=== PATIENT | female | born 1990 ===

== ENCOUNTER 2017-10-01 10:46 | Emergency (ER) | payer OTHER, SELFPAY ==
[2017-10-01 10:54] VITALS: BP 140/88; PULSE 78; RESP 13; TEMP 36.8; O2SAT 99
--- NOTE | 2017-10-01 11:19 | ED_ITS ---
HPI - Nausea/Vomiting/Diarrhea General Chief complaint: Nausea/Vomiting/Diarrhea Stated complaint: 11 WKS PREG, THROWING UP ALOT Time Seen by Provider: 10/01/17 10:53 Source: patient Mode of arrival: ambulatory Limitations: no limitations History of Present Illness HPI Narrative: 27-year-old at approximately 11 weeks EGA here for evaluation of nausea and vomiting. Patient states she has had nausea and vomiting since about 8 weeks gestation. She does have Zofran that she has been given by her OB. She has a OB appointment tomorrow. She states she is having some cramping however no also fluid no vaginal bleeding. Came in because of the nausea. Related Data Home Medications Medication Instructions Recorded Confirmed acetaminophen [Tylenol] 1 dose PO PRN PRN 10/01/17 10/01/17 ondansetron HCl 1 tab PO TID PRN 10/01/17 10/01/17 [id number] fum-folic 1 tab PO DAILY 10/01/17 10/01/17 Previous Rx's Medication Instructions Recorded ondansetron [Zofran ODT] 4 mg PO Q6-8H PRN #10 tab 10/01/17 Allergies Allergy/AdvReac Type Severity Reaction Status Date / Time No Known Drug Allergies Allergy Verified 10/01/17 11:21 Review of Systems Constitutional Denies chills, Denies fatigue and Denies fever(s) ENT Ears, Nose, Mouth, and Throat: Denies vertigo and Denies dizziness Cardiovascular Denies chest pain, Denies palpitations and Denies dyspnea Respiratory Denies dyspnea Gastrointestinal Gastrointestinal: Reports abdominal pain (Cramping), Denies diarrhea, Reports nausea and Denies vomiting Genitourinary Denies urinary frequency, Denies dysuria, Denies flank pain and Denies vaginal discharge Musculoskeletal Denies myalgias and Denies arthralgias Integumentary/Breasts Denies rash Neurologic Denies vertigo and Denies dizziness Endocrine Denies fatigue and Denies palpitations Exam Initial Vital Signs Initial Vital Signs: Vital Signs Temperature 98.3 F 10/01/17 10:54 Pulse Rate 78 10/01/17 10:54 Respiratory Rate 13 10/01/17 10:54 Blood Pressure 140/88 H 10/01/17 10:54 Pulse Oximetry 99 10/01/17 10:54 Const General: cooperative, healthy appearing, comfortable, well developed, well groomed and No acute distress [facility] [place] Head: normal to inspection, normocephalic and atraumatic Resp Effort & Inspection: normal respiratory effort Cardio Rate: regular rate Pulses: radial pulses present GI Inspection: non-distended Palpation: soft Skin Lesions: no lesions Rashes: no rashes Neuro General: alert, awake and oriented x3 Gait: normal gait Extrem General: normal to inspection and capillary refill normal Course Orders Ordered: ED Orders 10/01/17 11:05 Ictotest Urine Stat Urine Microscopic Stat 10/01/17 13:00 Urine Culture Stat Discontinued Medications Sodium Chloride (Normal Saline 0.9%) 1,000 mls @ 1,000 mls/hr IV BOLUS ONE Stop: 10/01/17 11:52 Last Infusion: 10/01/17 12:45 Dose: 0 mls/hr Admin: 10/01/17 11:20 Dose: 1,000 mls/hr Ondansetron HCl (Zofran) 4 mg IV NOW ONE Stop: 10/01/17 10:54 Last Admin: 10/01/17 11:20 Dose: 4 mg Promethazine HCl (Phenadoz) 25 mg PO NOW ONE Stop: 10/01/17 13:40 Last Admin: 10/01/17 14:50 Dose: 25 mg Vital Signs - 8 hr 10/01/17 10:54 10/01/17 13:59 Temperature 98.3 F Pulse Rate 78 64 Respiratory Rate 13 15 Blood Pressure 140/88 H Blood Pressure [Left Arm] 111/64 Pulse Oximetry 99 100 MDM - Nausea/Vomiting/Diarrhea Lab Data Attestation: I reviewed the patient's lab results. Lab Results 10/01/17 10/01/17 Range/Units 11:05 11:05 Urine Ictotest Negative (Negative) Urine RBC 0-1/hpf (0-5/HPF) Urine WBC 1-5/hpf (0-5/HPF) Ur Squamous Epith Cells 5-10 /hpf H Amorphous Sediment 1+ Urine Bacteria Many (>30) H (None) Urine Mucus 1+ H (Negative) Ur Culture Indicated? Cult not indicated Micro UA Comment MDM Narrative Medical decision making narrative: Patient has bacteria in her urine however has multiple epithelial cells and no white blood cells. Will hold on any antibiotics for now. Patient does have oral Zofran at home. Does not have the ODT Zofran. Was given oral Phenergan here however she vomited it. We did discuss other routes to include rectal Phenergan and the ODT Zofran. She opted for the ODT Zofran. She was given fluids here in the ER. Stated she did feel better afterwards. She does have a follow-up tomorrow. She was given return precautions. She expressed understanding and agreement with plan. Discharge Plan Departure Patient Disposition: Home, Self-Care Clinical Impression: Nausea and vomiting during Discharge Date/Time: 10/01/17 15:45 Interventions: ED Discharge Assessment Last Done: 10/01/17 15:43 Instructions: DI for Hyperemesis Gravidarum Activity Restrictions/Additional Instructions: Recommend that you take the dissolvable Zofran like we discussed. Take small amounts of fluid over a long period of time. Keep her follow-up with your OB doctor tomorrow. Return to the emergency department for any new or worsening symptoms Prescriptions: New ondansetron [Zofran ODT] 4 mg tablet,disintegrating 4 mg PO Q6-8H PRN (Reason: nausea and vomiting) Qty: 10 RF: 0 No Action ondansetron HCl 8 mg tablet 1 tab PO TID PRN (Reason: Nausea And Vomiting) RF: 0 [id number] fum-folic 27 mg iron- 800 mcg tablet 1 tab PO DAILY RF: 0 acetaminophen [Tylenol] 325 mg Tablet 1 dose PO PRN PRN (Reason: Headache) RF: 0
[2017-10-01] MEDS: ONDANSETRON 4 MG/2 ML INJ IV (11:20)
[2017-10-01] MEDS: SODIUM CHLORIDE 0.9% 1,000 ML 1000 ML IV (11:20)
[2017-10-01 11:37] LABS: Amorphous Sediment Urine 1+; Bacteria Urine Many (>30); Mucus Urine 1+ (Negative); RBC Urine 0-1/HPF (0-5/HPF); Squamous Epithelial Cell Urine 5-10 /HPF; WBC Urine 1-5/HPF (0-5/HPF)
[2017-10-01 11:38] LABS: Culture Indicated Urine Cult Not Indicated
[2017-10-01 11:39] LABS: Ictotest Urine Negative (Negative)
[2017-10-01 13:59] VITALS: BP 111/64; PULSE 64; RESP 15; O2SAT 100
[2017-10-01] MEDS: PROMETHAZINE 25 MG TABLET PO (14:50)
== END 2017-10-01 15:45 | disposition home or self-care (01) ==
PROVIDERS: Emergency Provider Emergency Medicine
DX: O21.9 Vomiting of pregnancy, unspecified (principal); Z3A.25 25 weeks gestation of pregnancy
CPT/HCPCS: 81003; 81015; 87086; 96361; 96374; 99283; 99284; J2405